=== PATIENT | female | born 1985 | race Caucasian/White ===

== ENCOUNTER 2017-07-24 12:03 | Inpatient (IN) | payer OTHER ==
[2017-07-24] MEDS ORDERED: Promethazine HCl 25 MG/ML VIAL IM PRN ×2 (13:00→14:28)
[2017-07-24] MEDS ORDERED: HYDROcodone/Acetaminophen 5/325 mg Tablet PO PRN ×4 (13:00→18:32)
[2017-07-24] MEDS ORDERED: LR 500 ML/Oxytocin 10 units 500 ML IV PRN (13:00)
[2017-07-24] MEDS ORDERED: LR / Pitocin 40 units/1000 ml 1,000 ML IV PRN (13:00)
[2017-07-24] MEDS ORDERED: Ibuprofen 800 MG TAB PO PRN (13:00)
[2017-07-24] MEDS ORDERED: Lidocaine 1% (PF) 30 ML VIAL SC PRN (13:00)
[2017-07-24] MEDS ORDERED: Ondansetron HCl/PF 4 MG/2 ML Vial IVP PRN ×3 (13:00→18:32)
--- NOTE | 2017-07-24 13:11 | PDOC.LDHP ---
Labor and Delivery H&P Chief complaint: contractions HPI: maritza since 5am. contractions are every 3 mins. Denies LOF. Fasting BG is 94 this am and postprandial after eating a banana is 85. Current gestational age (weeks): 39 Due date: 07/25/17 Dating criteria: last menstrual period (verified with first trimester US) Grav: 3 Para: 2 OB History Details: + Ct at NOB. GBS positive Current complications: gestational diabetes (A1 diet controlled) Abnormal US findings: No Past Medical History: obesity Current medications: pre- vitamins Previous surgical history: none Allergies/Adverse Reactions: Allergies Allergy/AdvReac Type Severity Reaction Status Date / Time No Known Drug Allergies Allergy Verified 07/24/17 13:38 Social history: none - Physical Exam Vital signs reviewed and normal: yes General: breathing through contractions Heart: RRR Lungs: nonlabored breathing Abdomen: gravid Extremeties: trace edema FHT: category 2 ( tachycardia) - Vaginal Exam cm dilated: 6 Effacement: 50% Station: -2 - OB Labs Blood type: O RH: positive Antibody Screen: negative HIV: negative RPR: negative HEPSAg: negative 1 hour GCT: positive 3 hour GTT: positive GBS: positive Rubella: immune - Assessment L&D Assessment: term patient in labor - Plan Plan: admit to L&D, GBS antibiotic prophylaxis
[2017-07-24] MEDS: Lactated Ringer's 1,000 ML IV SCH ×2 (13:17→14:50)
[2017-07-24] MEDS ORDERED: Penicillin G Potassium 5 MILL.UNITS VIAL ONE (13:36)
[2017-07-24 13:40] VITALS: BMI 37.4
[2017-07-24 13:43] LABS: Mean Corpuscular Hemoglobin 24.4 pg (27.0-31.0); Mean Corpuscular Volume 76.2 fl (81.0-99.0); Mean Platelet Volume 7.8 fL (7.4-10.4); Platelet Count 303 thou/uL (130-400); RBC Distribution Width 15.7 % (11.5-14.5); Red Blood Cell (RBC) Count 4.93 mill/uL (4.20-5.40); White Blood Cell (WBC) Count 9.4 thou/uL (4.8-10.8)
[2017-07-24] MEDS ORDERED: Penicillin G Potassium 5 MILL.UNITS in Sodium Chloride 0.9% 100 ML IVPB SCH (14:00)
[2017-07-24] MEDS ORDERED: Fentanyl 4 mcg/Marc 0.1% Cadd 100 ML ONE (14:03)
[2017-07-24] MEDS ORDERED: Acetaminophen 325 MG TAB PO PRN (14:28)
[2017-07-24] MEDS ORDERED: diphenhydrAMINE 50 MG/ML VIAL IVP PRN (14:28)
[2017-07-24] MEDS ORDERED: Lactated Ringer's 500 ML IV PRN (14:28)
[2017-07-24] MEDS ORDERED: ePHEDrine/0.9% NaCl/PF SYRINGE 50 mg/10 ml SLOW IVP PRN (14:28)
[2017-07-24] MEDS ORDERED: Eucerin (Mineral Oil/Petrolatum,White) 30 gm Jar TOP PRN (14:28)
[2017-07-24] MEDS ORDERED: Naloxone HCl 0.4 mg/ml Vial IVP PRN ×2 (14:28)
[2017-07-24] MEDS ORDERED: Fentanyl 4mcg/Marcaine 0.1% Cassette 100 ML EPIDURAL SCH (14:30)
[2017-07-24] MEDS ORDERED: Communication Order-Pharmacy FS SCH (14:30)
[2017-07-24 14:31] LABS: Syphilis Antibody Nonreactive (Nonreactive); Syphilis Antibody Index 0.04 S/CO (<1.00 Non-Reactive)
[2017-07-24 14:33] LABS: HBSAg Index 0.17 S/CO (0-0.99); Hep B Surf Ag Non-Reactive S/CO (NonReactive)
--- NOTE | 2017-07-24 17:45 | PDOC.OPDEL ---
OB Operative/Delivery Note Delivery Dr/Surgeon: MIKEY Ruiz Assist: Delroy 3rd year medical student Pre-Delivery Diagnosis: active labor Procedure/Post Delivery Dx: spontaneous vaginal delivery Weeks gestation: 39 Anesthesia: epidural - Findings A Sex: female Weight: 7 lb 12 oz - 1 min: 8 - 5 min: 9 - Additional Findings/Plan Placenta delivered: spontaneous Repaired Obstetrical Laceration: 1st degree Estimated blood loss: 300mL Compilations/Other Findings: 1st degree, repaired Post delivery plan: routine recovery
[2017-07-24] MEDS ORDERED: Penicillin G 2.5 MILL.units 2.5 MILL.UNITS in Premix Bag 1 BAG IVPB SCH (18:00)
[2017-07-24] MEDS ORDERED: Misoprostol 200 MCG TAB VAG PRN (18:32)
[2017-07-24] MEDS ORDERED: Milk Of Magnesia 30 ML UDCUP PO PRN (18:32)
[2017-07-24] MEDS ORDERED: Benzocaine/Menthol 20-0.5% 60 ML CAN TOP PRN (18:32)
[2017-07-24] MEDS ORDERED: Lanolin Ointment 7 GM TUBE TOP PRN (18:32)
[2017-07-24] MEDS ORDERED: LR / Pitocin 40 units/1000 ml 1,000 ML IV SCH (18:32)
[2017-07-24] MEDS ORDERED: Bisacodyl 10 MG SUPP PR PRN (18:32)
[2017-07-24] MEDS ORDERED: Methylergonovine 0.2 MG/ML VIAL IM PRN (18:32)
[2017-07-24] MEDS ORDERED: LR / Pitocin 40 units/1000 ml 1,000 ML ONE (18:36)
[2017-07-24] MEDS ORDERED: Varicella virus, LIVE 0.5 ML VIAL SC ONE (18:45)
[2017-07-24] MEDS ORDERED: Adacel (T-DAP) 0.5 ML VIAL IM ONE (18:45)
[2017-07-24] MEDS ORDERED: Measles/Mumps/Rubella 10 MCG/0.5 ML VIAL SC ONE (18:45)
[2017-07-24] MEDS: Ibuprofen 800 MG TAB PO SCH (21:47)
[2017-07-24] MEDS: Docusate Calcium (SURFAK) 240 MG CAP PO SCH (21:47)
[2017-07-25 05:41] LABS: Hemoglobin 10.8 g/dL (12.0-16.0); Mean Corpuscular Hemoglobin 24.7 pg (27.0-31.0); Mean Corpuscular Volume 77.3 fl (81.0-99.0); Mean Platelet Volume 7.9 fL (7.4-10.4); Platelet Count 263 thou/uL (130-400); RBC Distribution Width 15.6 % (11.5-14.5); Red Blood Cell (RBC) Count 4.36 mill/uL (4.20-5.40); White Blood Cell (WBC) Count 11.7 thou/uL (4.8-10.8)
[2017-07-25] MEDS: Ibuprofen 800 MG TAB PO SCH ×3 (06:35→21:45)
[2017-07-25] MEDS ORDERED: FLU VACC QS2017-18 36 mo. & older 0.5 ML SYRINGE IM ONE ×2 (09:00→21:00)
[2017-07-25] MEDS: Docusate Calcium (SURFAK) 240 MG CAP PO SCH ×2 (09:38→21:45)
[2017-07-25] MEDS: Prenatal Vitamin 1 TAB PO SCH (09:38)
--- NOTE | 2017-07-25 11:52 | PDOC.PP ---
Post Progress Note Post Day #: 1 Subjective: doing well. okay. a little sore PO intake tolerated: yes Flatus: yes Ambulation: yes Vital Signs (12 hours) Temp Pulse Resp BP 07/25/17 08:25 98.0 F 88 16 121/66 07/25/17 06:56 136/73 07/25/17 04:00 98.3 F 78 18 07/25/17 00:30 98.3 F 78 18 121/79 Weight Weight 225 lb - Physical Examination Cardiovascular: no m/r/g Respiratory: clear to auscultation bilaterally Abdominal: + bowel sounds (hypoactive) Fundus firm & at: u-2 Extremities: negative homans (B) Neurological: no gross focal deficits Psychiatric: A&Ox3, normal affect Result Diagrams: 07/25/17 05:16 Additional Labs: Post Labs Blood Type O POSITIVE 07/24/17 13:17 Hep Bs Antigen Non-Reactive S/CO (NonReactive) 07/24/17 13:17 (1) (spontaneous vaginal delivery) Code(s): O80 - ENCOUNTER FOR FULL-TERM UNCOMPLICATED DELIVERY Status: Acute (2) Gestational diabetes Code(s): O24.419 - GESTATIONAL DIABETES MELLITUS IN , UNSP CONTROL Status: Acute (3) Group beta Strep positive Code(s): B95.1 - STREPTOCOCCUS, GROUP B, CAUSING DISEASES CLASSD ELSWHR Status : Acute (4) Multigravida Code(s): Z64.1 - PROBLEMS RELATED TO MULTIPARITY Status: Acute - Assessment/Plan A: G3 now P3 s/p at 39.6, GBS positive treated x 1 dose. NML ppd #1 exam. P: routine care discharge home tomorrow.
[2017-07-25] MEDS: Ferrous Sulfate 325 MG TAB PO SCH ×2 (12:38→18:17)
[2017-07-26] MEDS: Ibuprofen 800 MG TAB PO SCH (06:20)
--- NOTE | 2017-07-26 08:01 | PDOC.PP ---
Post Progress Note Post Day #: 2 Subjective: doing well, passing gas. ambulating well. Struggling with breast feeding with sore nipples and fussy baby. is not feeling the nipple in her mouth. PO intake tolerated: yes Flatus: yes Ambulation: yes Vital Signs (12 hours) Temp Pulse Resp BP Pulse Ox 07/25/17 21:40 98.1 F 85 18 118/68 98 Weight Weight 225 lb - Physical Examination General: NAD Cardiovascular: no m/r/g Respiratory: clear to auscultation bilaterally Abdominal: + bowel sounds, lochia (minimal) Extremities: negative homans (B) Psychiatric: A&Ox3 Result Diagrams: 07/25/17 05:16 Additional Labs: Post Labs Blood Type O POSITIVE 07/24/17 13:17 Hep Bs Antigen Non-Reactive S/CO (NonReactive) 07/24/17 13:17 (1) (spontaneous vaginal delivery) Code(s): O80 - ENCOUNTER FOR FULL-TERM UNCOMPLICATED DELIVERY Status: Acute (2) Gestational diabetes Code(s): O24.419 - GESTATIONAL DIABETES MELLITUS IN , UNSP CONTROL Status: Acute (3) Group beta Strep positive Code(s): B95.1 - STREPTOCOCCUS, GROUP B, CAUSING DISEASES CLASSD ELSWHR Status : Acute (4) Multigravida Code(s): Z64.1 - PROBLEMS RELATED TO MULTIPARITY Status: Acute - Assessment/Plan A: NML exam PPD #2 P: discharge home today close f/up up with .
[2017-07-26] MEDS: Ferrous Sulfate 325 MG TAB PO SCH (08:16)
[2017-07-26 08:20] VITALS: BP 132/69; TEMP 98.6
[2017-07-26] MEDS: Prenatal Vitamin 1 TAB PO SCH (09:07)
[2017-07-26] MEDS: Docusate Calcium (SURFAK) 240 MG CAP PO SCH (09:07)
== END 2017-07-26 12:45 | disposition home or self-care (01) | DRG 775 ==
LOC: L&D/OP 12:03 → L&D 12:44 → 3SW 20:08
PROVIDERS: ADMIT Obstetrics & Gynecology; ATTEND Obstetrics & Gynecology
PROC: 10E0XZZ Delivery of Products of Conception, External Approach (ICD-10-PCS; principal; 2017-07-24)
PROC: 0HQ9XZZ Repair Perineum Skin, External Approach (ICD-10-PCS; 2017-07-24)
PROC: 4A0HXCZ Measurement of Products of Conception, Cardiac Rate, External Approach (ICD-10-PCS; 2017-07-24)
PROC: 10907ZC Drainage of Amniotic Fluid, Therapeutic from Products of Conception, Via Natural or Artificial Opening (ICD-10-PCS; 2017-07-24)
DX: O24.420 Gestational diabetes mellitus in childbirth, diet controlled (principal); B95.1 Streptococcus, group B, as the cause of diseases classified elsewhere; O70.0 First degree perineal laceration during delivery; O99.824 Streptococcus B carrier state complicating childbirth; O76 Abnormality in fetal heart rate and rhythm complicating labor and delivery; Z3A.39 39 weeks gestation of pregnancy; Z37.0 Single live birth; Z64.1 Problems related to multiparity
CPT/HCPCS: 36415; 36416; 51702; 85027; 86780; 87340; 99285; J2001; J2540; J7050

== ENCOUNTER 2017-09-29 10:54 | Outpatient (CLI) | payer OTHER ==
[2017-09-29 12:03] LABS: Mean Corpuscular HGB CONC 31.6 g/dL (32.0-36.0); Mean Corpuscular Hemoglobin 25.5 pg (27.0-31.0); Mean Corpuscular Volume 80.8 fl (81.0-99.0); Mean Platelet Volume 7.8 fL (7.4-10.4); Platelet Count 353 thou/uL (130-400); RBC Distribution Width 17.6 % (11.5-14.5); White Blood Cell (WBC) Count 7.3 thou/uL (4.8-10.8)
[2017-09-29 12:53] LABS: BHCG - Serum Negative (NEGATIVE); Pregs Control Background? CLEAR/WHITE (CLR/WHITE); Pregs Control Bar Appear? YES (CONTROL BAR)
== END 2017-09-29 10:55 | disposition home or self-care (01) ==
LOC: LABBT 10:54
PROVIDERS: ATTEND Obstetrics & Gynecology
DX: Z01.812 Encounter for preprocedural laboratory examination (principal); N87.1 Moderate cervical dysplasia
CPT/HCPCS: 84703; 85027; 86850; 86900; 86901

== ENCOUNTER 2017-09-30 07:55 | Day surgery (SDC) | payer OTHER ==
--- NOTE | 2017-09-29 11:05 | HP ---
DATE OF PLANNED PROCEDURE: 09/30/2017 PREOPERATIVE DIAGNOSES: Cervical biopsy, BRIELLE 2 with moderate dysplasia at 11:00 on colposcopy. PROCEDURE TO BE PERFORMED: Loop electrosurgical excisional procedure. SURGEON: Landon Ayala D.O. HISTORY OF PRESENT ILLNESS: Ms. Oxana Winter was referred to me from [facility] for eval uation of abnormal Pap smear. Her Pap smear on 09/04/2017 was reported as atypical squamous cells, c annot exclude HSIL and was positive for HPV 16 and negative for HPV 18. The patient underwent a colp oscopy for evaluation of her abnormal Pap smear with me in the office with a biopsy taken at 11:00 fr om the ectocervix that reports cervical intraepithelial neoplasia 2. The patient has been counseled for the further indicated excisional procedure and desires her procedure to be done under sedation. OBSTETRICAL HISTORY: Three vaginal deliveries, most recent on 07/24/2017. GYNECOLOGIC HISTORY: Currently using Mirena IUD for contraception. Recent abnormal Pap smear of aty pical cells, cannot exclude high grade. Previous Pap smear on file from 2013 was negative for intrae pithelial lesion or malignancy with a negative HPV. No history of STD or PID. PAST MEDICAL HISTORY: None. CURRENT MEDICATIONS: None. PAST SURGICAL HISTORY: None. SOCIAL HISTORY: Negative for alcohol, tobacco, or drug use. She is and works [employer]. ALLERGIES: No known drug allergies. FAMILY HISTORY: Significant for heart disease in her father, cholesterol, diabetes in her father. REVIEW OF SYSTEMS: Negative per HPI. PHYSICAL EXAMINATION: VITAL SIGNS: Most recent blood pressure 102/78, weight 208 pounds, BMI 34.6. GENERAL: No acute distress. Alert and oriented. LUNGS: Unlabored breathing. ABDOMEN: Soft, nontender. No palpable masses. GENITOURINARY: Normal external female genitalia. Normal vaginal mucosa. Normal-appearing cervix wi th no gross lesions, but acetowhite changes identified approximately 11:00 on colposcopy. EXTREMITIES: Normal range of motion in the upper and lower extremities. No clubbing, cyanosis, or e jeremy. SKIN: No rashes. DIAGNOSTIC STUDIES: Surgical pathology report from cervical biopsy at the time of colposcopy with CI N 2. Pap smear, atypical cells, cannot exclude high grade with HPV 16 positive. ASSESSMENT: Ms. Oxana Winter is a 32-year-old multiparous female with abnormal Pap smear and colposc opy with BRIELLE 2. Indications for LEEP procedure have been explained to the patient in detail. The ri sks are to include, but not limited to bleeding, infection, inability to fully diagnose and we can tr eat all conditions at the time of surgery and possible need for future medical and/or surgical manage ment including repeat Pap smears, interval colposcopies, or possible repeat LEEP procedure based on r eported margins at the time of pathologic review. The patient's questions have been answered and she desires to proceed with a LEEP procedure, which is scheduled for 09/30/2017.
[2017-09-29 11:15] VITALS: BMI 33.9
[2017-09-30] MEDS ORDERED: Lidocaine 1% w/Epinephrine 1:200K 30 ML VIAL ONE (10:01)
[2017-09-30] MEDS ORDERED: Ferric Subsulfate 8 ML BOT ONE (10:01)
[2017-09-30] MEDS ORDERED: CEFAZOLIN/Water 2 GM/20 ML SYRINGE ONE (10:11)
[2017-09-30] MEDS ORDERED: Fentanyl 100 MCG/2 ML VIAL ONE (11:29)
--- NOTE | 2017-09-30 12:19 | OP ---
DATE OF PROCEDURE: 09/30/2017 PREOPERATIVE DIAGNOSES: 1. Pap smear, atypical cells of undetermined significance, cannot rule out high grade. 2. Cervical intraepithelial neoplasia. 3. Moderate dysplasia on colposcopy. PROCEDURES PERFORMED: Loop electrode excisional procedure. SURGEON: aLndon Ayala D.O. TARIFF INSPECTOR: IRENE [id number]. COMPLICATIONS: None. ESTIMATED BLOOD LOSS: 10 mL ANESTHESIA: LMA. INTRAOPERATIVE FINDINGS: 1. Normal vaginal mucosa. 2. Parous cervix with IUD strings noted. 3. No gross cervical lesions. INDICATIONS FOR PROCEDURE: The patient has a known BRIELLE-2 with moderate dysplasia from a biopsy taken at approximately 11:00 were the acetowhite changes were noted on colposcopy about a week and half ag o. The patient has been counseled for the indication for excisional procedure and has been scheduled to undergo the aforementioned procedure here at [facility] with intravenous anesthesia and LMA. PROCEDURE DETAILS: The patient was taken back to the OR with IV fluids running. Once she was in the OR, she was placed in dorsal supine position and anesthesia was obtained with LMA. Once the patient was asleep, she was placed in low dorsal lithotomy position and the vagina was prepped and draped in normal fashion for gynecologic surgery. The bladder was drained approximately 150 mL. Coated operative speculum was placed into the vagina with suction attached for evacuation of smoke du ring the case. The cervix was grasped at the anterior lip with a single tooth tenaculum and 1% lidoc doni with epinephrine was placed into the cervix at 2, 4, 7, and 10 o'clock. A loop electrode was pl aced incising the cervix at 9 o'clock with caution taking to avoid disrupting IUD string. The loop w as continued circumferentially to 3 o'clock and then to approximately 6-7 o'clock with this removing the specimen from 9 to approximately 6:00 o'clock and 1 large piece. Next, the remaining left lower quadrant of the cervix was excised with a loop specimen as well, and this was tagged and handed off s eparately. After the excisional procedure was completed, an endocervical curettage was performed and this was sent for pathologic review. The cervical LEEP bed was then cauterized with rollerball caut ludivina with hemostasis noted and again avoiding disrupting the IUD strings. A thick layer Monsel's paced with placed into the LEEP bed for additional hemostasis. The speculum w as removed as well as all the instruments. The count was correct. The patient was then clean, dry a nd extubated, and taken to recovery room in good condition.
== END 2017-09-30 13:45 | disposition home or self-care (01) ==
LOC: SDC 07:55
PROVIDERS: ATTEND Obstetrics & Gynecology
PROC: 0UBC7ZX Excision of Cervix, Via Natural or Artificial Opening, Diagnostic (ICD-10-PCS; principal; 2017-09-30)
DX: N87.1 Moderate cervical dysplasia (principal); D06.0 Carcinoma in situ of endocervix; Z97.5 Presence of (intrauterine) contraceptive device
CPT/HCPCS: 88305; 88307; 96374; J1644; J2175; J3010